=== PATIENT | female | born 1980 | race Caucasian/White ===

== ENCOUNTER 2022-04-06 13:41 | Emergency (ER) | payer OTHER ==
[~2022-04-06] VITALS: Ht 157.5 cm; Wt 78.0 kg
[2022-04-06 14:36] VITALS: BP_SYST 133
--- NOTE | 2022-04-06 14:44 | NUR ---
Patient triaged and placed in waiting room. VSS and patient appears in no acute distress at this time. Accompanied by self, awaiting available bed, and MD notified of need for MSE.
--- NOTE | 2022-04-06 15:33 | NUR ---
pt assessed by dr. alcazar
--- NOTE | 2022-04-06 16:00 | NUR ---
Pt c/o pain to left side of face and neck. Pt skin intact. AAOx4. Pt denies NVD. No signs of trauma.
[2022-04-06] MEDS ORDERED: CARB100T13 PO (16:28)
[2022-04-06] MEDS ORDERED: IBUP-1971 PO (16:29)
[2022-04-06] MEDS ORDERED: KETOROLAC TROMETHAMINE 60 MG/2 ML VIAL IM ONE (16:30)
[2022-04-06 16:54] VITALS: BP_SYST 130
--- NOTE | 2022-04-06 16:56 | NUR ---
Patient given written and verbal discharge instructions and verbalizes understanding. ER MD discussed with patient the results and treatment provided. Patient in stable condition. ID arm band removed. Rx of Tegretol and Motrin given. Patient educated on pain management and to follow up with PMD. Opportunity for questions provided and answered. Medication side effect fact sheet provided.
== END 2022-04-06 16:56 | disposition home or self-care (01) ==
LOC: SED 13:41
DX: R51.9 Headache, unspecified (principal); Z79.899 Other long term (current) drug therapy
CPT/HCPCS: 99284; 70450; 76376; 96372; J1885